=== PATIENT | female | born 1975 | race Caucasian/White ===

== ENCOUNTER 2025-02-21 08:59 | Emergency (ER) | payer OTHER, SELFPAY ==
[2025-02-21 09:01] VITALS: BP 117/82
--- NOTE | 2025-02-21 09:32 | ED.GENMED ---
History of Present Illness
<Vick Camacho PA-C - Last Filed: 02/21/25 15:24>
General
Chief Complaint: Abdominal Pain
Time Seen by Provider: 02/21/25 09:19
History of Present Illness
History of Present Illness:
49-year-old female presents to the emergency department for evaluation of left pelvic pain that has been occurring intermittently for the past 2 to 3 days. Pain began Sunday night, gradual in onset but severe at maximal. Has been waxing and
waning, reports a constant low level pain with episodes of severe pain. Did have some vomiting when pain maximized. Denies any fevers, night sweats, diarrhea, vaginal discharge, vaginal bleeding, or lower urinary tract voiding symptoms. Prior
abdominal surgery includes x 2 and tubal ligation. Last menstrual cycle began 2 weeks ago
Review of Systems
<Vick Camacho PA-C - Last Filed: 02/21/25 15:24>
Review of Systems
Allergies reviewed?: Yes
All Other Systems: ROS reviewed and negative except as documented in HPI and ROS
Phy Exam
<Vick Camacho PA-C - Last Filed: 02/21/25 15:24>
Physical Exam
Physical Exam:
GEN: Well appearing, NAD, WDWN
HEENT: Oral mucosa moist, no scleral icterus
Cardiac: Regular rate
Lung: No respiratory distress, no tachypnea
Abdomen: Soft, no palpable masses, left lower quadrant/pelvic tenderness with no rigidity or peritoneal signs
MSK: No gross deformity or injuries
Skin: Good color, no pallor or jaundice, no rashes
Neuro: AO x3, moves all extremities freely
Psych: Calm, cooperative
Course
<MARLYN Jose Last Filed: 02/21/25 15:24>
Orders/Labs/Results
Orders:
Orders
07/26/25 09:29
Urinalysis Reflex To Culture Urgent
Date Specimen was Collected: 02/21/25
Time Specimen was Collected: 09:28
Test Result ONCE
US Pelvis W Transvag Combined Urgent
Comment: transvag only if transabd view inadequate
Reason For Exam: L pelvic pain
Vital Signs
Initial and Last Documented VS:
Initial Vital Signs
Temp Pulse Resp BP Pulse Ox
98.3 F 78 16 117/82 98
02/21/25 09:01 02/21/25 09:01 02/21/25 09:01 02/21/25 09:01 02/21/25 09:01
Last Documented Vital Signs
Temp Pulse Resp BP Pulse Ox
98.3 F 78 16 117/82 98
02/21/25 09:01 02/21/25 09:01 02/21/25 09:01 02/21/25 09:01 02/21/25 09:33
<Dorie Vincent MD - Last Filed: 02/21/25 10:23>
Orders/Labs/Results
Orders:
Orders
02/21/25 09:29
Urinalysis Reflex To Culture Urgent
Date Specimen was Collected: 02/21/25
Time Specimen was Collected: 09:28
Test Result ONCE
US Pelvis W Transvag Combined Urgent
Comment: transvag only if transabd view inadequate
Reason For Exam: L pelvic pain
Vital Signs
Initial and Last Documented VS:
Initial Vital Signs
Temp Pulse Resp BP Pulse Ox
98.3 F 78 16 117/82 98
02/21/25 09:01 02/21/25 09:01 02/21/25 09:01 02/21/25 09:01 02/21/25 09:01
Last Documented Vital Signs
Temp Pulse Resp BP Pulse Ox
98.3 F 78 16 117/82 98
02/21/25 09:01 02/21/25 09:01 02/21/25 09:01 02/21/25 09:01 02/21/25 09:33
<Vick Camacho PA-C - Last Filed: 02/21/25 15:24>
MDM/Problems Addressed
MDM/Problems Addressed:
Imaging obtained to evaluate for cyst or torsion, this reveals 2 separate cysts, 1 of which is a left ovarian cyst with internal hemorrhage, the likely the source of the patient's pain. She also was noted to have a relatively large left paraovarian
cyst of unclear etiology. 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 Her pain was well-controlled in the ED and she appears clinically stable thus there is no indication for urgent TELEPHONE [employer]ERKS SUPERVISOR intervention
<Vick Camacho PA-C - Last Filed: 02/21/25 15:24>
*Pulse Oximetry
SaO2: 98
Oxygen Mode of Delivery: Room air
Patient hypoxic: no
*Critical Care Note
Total Time (30-74mins, 75-104mins- exclusive of procedures): Not Applicable
ED Attending Note
<Vick Camacho PA-C - Last Filed: 02/21/25 15:24>
-
Portions of this chart may have been created with voice recognition software.� Occasional wrong word or��sound alike� substitutions may have occurred due to the inherent limitations of voice recognition software.
<Dorie Vincent MD - Last Filed: 02/21/25 10:23>
ED Attending Note
Patient seen and examined by attending physician: Yes
I performed the substantive portion of visit, reviewed & personally made and approve the management plan that is documented in note by myself or MINA.: Yes
ED Attending Note:
49-year-old female complains of left lower quadrant pain on and off since Sunday. There are no specific provoking or relieving factors with the exception of a warm shower Motrin can help it. She did have 1 episode of vomiting. She denies
fever, chills, urinary symptoms, vaginal bleeding or discharge. Last menstruation was approximately 2 weeks ago. She denies chest pain, shortness of breath, flank pain, upper abdominal pain, or other complaints. On exam, patient overall nontoxic
and well-appearing. Her bladder is now full in anticipation of an ultrasound. On exam, she has minimal left lower quadrant tenderness without rebound or guarding. Differential diagnosis includes ovarian cyst, ovarian cyst rupture, ovulation,
kidney stone, diverticulitis, etc. Workup in progress.
Discharge Plan
Departure
Patient Disposition: Home (Routine Discharge)
Date of Disposition: 02/21/25
Time of Disposition: 11:47
Patient with high blood pressure during this ER visit?: No
Discharge Problem:
Hemorrhagic cyst of ovary, Para-ovarian cyst
Instructions: Ovarian Cyst (DC)
Prescriptions:
New
diclofenac sodium 75 mg tablet,delayed release (DR/EC)
75 mg PO BID Qty: 20 0RF
oxycodone 5 mg tablet
5 mg PO Q8H PRN (Reason: Pain) Qty: 8 0RF
Referrals:
Virginie Cunningham DO [Family Provider, Family Practice]
Carol Brown DO [Active, Gynecology]
Activity Restrictions/Additional Instructions:
Follow up with your OBGYN for repeat imaging of your cysts
If your pain becomes severe return to the ER
Interventions
Interventions:
*Risk Screen - Suicide Last Done: 02/21/25 09:01
*General Assessment Last Done: 02/21/25 09:47
*Neglect/Abuse Screening Last Done: 02/21/25 09:01
*ED- Fall Risk Assessment Last Done: 02/21/25 09:47
*ED COVID-19 Vaccine History Last Done: 02/21/25 09:47
*Nursing Disposition Last Done: 02/21/25 11:55
GC-Phmuen-Umqtfvzjiq Assessment Last Done: 02/21/25 11:55
Discharge Date and Time
Discharge Date/Time: 02/21/25 11:55
Print Language: INDONESIAN
[2025-02-21 09:47] VITALS: BMI 23.0
[2025-02-21 10:16] LABS: Urine Character Clear (Clear)
== END 2025-02-21 11:55 | disposition home or self-care (01) ==
LOC: EMR 08:59
PROVIDERS: Physician Assistant; EMERGENCY PHYSICIAN Emergency Medicine; FAMILY PHYSICIAN Family Medicine
DX: N83.202 Unspecified ovarian cyst, left side (principal)
CPT/HCPCS: 99284; 76830; 76856; 81003

== ENCOUNTER 2025-04-09 11:33 | Emergency (ER) | payer OTHER, SELFPAY ==
[2025-04-09] VITALS (7 sets, daily range): BP systolic 101–113; BP diastolic 49–70; BMI 23.9
[2025-04-09 12:37] LABS: Hematocrit 39.3 % (37.0-47.0); Hemoglobin 14.1 g/dL (12.0-16.0); Mean Corp Hgb Conc. 35.9 g/dL (33.0-37.0); Mean Corpuscular Volume 87.7 fL (81.0-99.0); Nucleated Red Blood Cells % 0 %; Platelet Count 275 10^3/uL (130-400); Red Cell Dist. Width 12.1 % (11.5-14.5)
[2025-04-09 12:49] LABS: Urine Character Clear (Clear)
[2025-04-09 12:54] LABS: HCG, Urine Qualitative Screen Negative
--- NOTE | 2025-04-09 12:55 | ED.GENMED ---
History of Present Illness
General
Chief Complaint: Abdominal Symptoms
Source: patient
Exam Limitations: none
Time Seen by Provider: 04/09/25 12:20
Nursing documentation reviewed up to this point in time: agreed with
History of Present Illness
History of Present Illness:
Patient is a 49-year-old female who presents to the emergency department for evaluation of left pelvic pain associated with nausea/vomiting. Patient reports left pelvic pain which initially started on Sunday and has been progressively worsening
over the past few days. She numerous episodes of nausea/vomiting however states that she has nothing in her stomach at this point it is just 'foam'. She reports radiation of pain from her left pelvic region into her left lower back/flank region.
She denies any fever or chills. She denies any dysuria, hematuria vaginal bleeding or abnormal discharge. No anorexia.
Patient does have a history of ovarian cyst that she was seen in the ED for similar back in January. She was scheduled for an outpatient pelvic ultrasound tomorrow.
Review of Systems
Review of Systems
Allergies reviewed?: Yes
All Other Systems: ROS reviewed and negative except as documented in HPI and ROS
Phy Exam
Physical Exam
Physical Exam:
Vitals: Patient's vital signs are stable. Afebrile
General: Patient is well appearing, no acute distress. Nontoxic appearing
Skin: Warm and dry, no rashes or lesions
Head: Normocephalic, atraumatic
Eyes: Sclera nonicteric.
Throat: Protecting airway
Neck: Normal ROM, no cervical spine tenderness, no meningismus
Cardiac: Regular rate and rhythm, no murmurs.
Pulm: Normal respiratory effort. Lungs clear
Abdomen: Abdomen soft. Mild tenderness in left pelvic region without rebound tenderness or guarding. No CVA tenderness.
Extremities: No evidence of cyanosis or edema
Neuro: AAOx3. Grossly intact.
Psychiatric: Normal affect.
Course
Orders/Labs/Results
Orders:
Orders
04/09/25 12:24
CBC/With Diff [Complete Blood Count/With Diff] Urgent
Comprehensive Metabolic Panel Urgent
04/09/25 12:35
Test Result ONCE
04/09/25 12:40
HCG, Urine Qualitative Screen Urgent
Date Specimen was Collected: 04/09/25
Time Specimen was Collected: 12:39
Urinalysis Reflex To Culture Urgent
Date Specimen was Collected: 04/09/25
Time Specimen was Collected: 12:39
Urine Microscopic Reflex Cult Urgent
04/09/25 12:52
0.9% Sodium Chloride 1000 ml [Nss] 1,000 ml IV BOLUS
Ketorolac [Toradol] 15 mg IV NOW STA
Ondansetron Injectable [Zofran] 4 mg IV NOW STA
Pelvis & Transvaginal US [US Pelvis W Transvag Combined] Urgent
Comment: hx ovarian cysts
Reason For Exam: Left pelvic pain, +N/V
Renal Only US [US Renal Only W/O Bladder] Urgent
Comment:
Reason For Exam: LLQ/left flank pain
04/09/25 18:44
Ketorolac [Toradol] 15 mg IV NOW STA
04/09/25 18:45
CT Abd/pelvis W Iv Cont Urgent
Comment:
Reason For Exam: Left pelvic pain radiating to flank
Abnormal Lab Results
04/09/25 04/09/25
12:24 12:40
MCH 31.5 H pg
(27.0-31.0)
MPV 11.9 H fL
(7.4-10.4)
Absolute Neuts (auto) 6.6 H 10^3/uL
(1.4-6.5)
Neutrophils % 76.4 H %
(42.2-75.2)
Lymphocytes % 15.5 L %
(20.5-51.1)
Chloride 108 H mmol/L
(98-107)
Carbon Dioxide 20 L mmol/L
(22-30)
Creatinine 0.5 L mg/dL
(0.6-1.0)
Albumin 5.2 H g/dl
(3.5-5.0)
Urine Ketones 3+ A
(Negative)
Ur Occult Blood Reflex 1+ A
(Negative)
Urine RBC 3-6 A /HPF
(0-2)
Urine Bacteria (Reflex) Few A
(Negative)
Urine Albumin (Reflex) 2+ A
(Neg - Trace)
04/09/25 12:24
04/09/25 12:24
Vital Signs
Initial and Last Documented VS:
Initial Vital Signs
Temp Pulse Resp BP Pulse Ox
97.6 F 61 16 107/63 98
04/09/25 11:34 04/09/25 11:34 04/09/25 11:34 04/09/25 11:34 04/09/25 11:34
Last Documented Vital Signs
Temp Pulse Resp BP Pulse Ox
98.9 F 66 18 101/52 100
04/09/25 20:47 04/09/25 20:47 04/09/25 20:47 04/09/25 20:47 04/09/25 20:47
MDM/Problems Addressed
Differential Diagnosis Includes:
Not limited to: Ovarian cyst, ovarian torsion, renal colic, cystitis/pyelonephritis, diverticulitis, muscular strain, etc.
MDM/Problems Addressed:
49-year-old female with history of ovarian cyst presenting with a few days of left pelvic discomfort associated with nausea/vomiting. No associated fever, dysuria/hematuria, diarrhea/constipation. No abnormal vaginal bleeding or discharge.
Patient did have history of left-sided ovarian cyst a few months ago which felt similar. Patient has stable vital signs on arrival and is afebrile. Physical exam as above.
Differential as above. Possible ovarian cyst, feel ovarian torsion less less likely. Other considerations would be possible renal colic or pyelonephritis. Lower suspicion for diverticulitis however would theoretically on differential. Given
history of known ovarian cysts. Will check labs, UA. Will start with ultrasound of pelvis for further evaluation to rule out torsion as well as renal ultrasound. Will give Toradol for pain and reassess after above.
Update: Labs without clinically significant abnormalities. Urine with few RBCs however no evidence of infection. Renal ultrasound without acute findings. Pelvic ultrasound confirms bilateral ovarian blood flow with small cysts of right ovary as
well as left paraovarian cyst. Will symptoms possibly secondary to left paraovarian cyst�given level of discomfort on exam as well as episodes of vomiting�utilize shared decision making patient will proceed with CT scan to rule out any other acute
intra-abdominal/pelvic pathology.
Update: CT scan reviewed with patient which again notes left paraovarian cyst as well as small right cysts in right ovarian area. No evidence of other acute intra-abdominal pathology or obstructive uropathy.
At this point�very low suspicion for acute infectious process. Feel stable for discharge home with [employer] MARKET[employer] SPECIALIST follow-up, supportive care and close return precautions. Patient comfortable with plan.
Chronic conditions affecting care:
History of ovarian cyst
Acute Exacerbation and/or Progression of Chronic Illness:
N/A
*Radiology
Radiology exam reviewed: radiology read reviewed
*Pulse Oximetry
SaO2: 100
Oxygen Mode of Delivery: Room air
Patient hypoxic: no
*EKG
Interpreted by ED Provider?: NA
*Podiatrist Orthopedic Interpretation
Rate: Podiatrist Orthopedic- N/A
*Critical Care Note
Total Time (30-74mins, 75-104mins- exclusive of procedures): Not Applicable
ED Attending Note
-
Portions of this chart may have been created with voice recognition software.� Occasional wrong word or��sound alike� substitutions may have occurred due to the inherent limitations of voice recognition software.
Discharge Plan
Departure
Patient Disposition: Home (Routine Discharge)
Date of Disposition: 04/09/25
Time of Disposition: 20:34
Patient with high blood pressure during this ER visit?: No
Condition: Good
Discharge Problem:
Left ovarian cyst, Pelvic pain
Instructions: Ovarian cyst - ED (DC), Pelvic pain - ED (DC)
Prescriptions:
New
diclofenac sodium 75 mg tablet,delayed release (DR/EC)
75 mg PO BID PRN (Reason: Pain) Qty: 14 0RF
ondansetron 4 mg tablet,disintegrating
4 mg PO Q8H PRN (Reason: nausea and vomiting) Qty: 7 0RF
No Action
diclofenac sodium 75 mg tablet,delayed release (DR/EC)
75 mg PO BID Qty: 20 0RF
oxycodone 5 mg tablet
5 mg PO Q8H PRN (Reason: Pain) Qty: 8 0RF
Referrals:
Virginie Cunningham DO [Family Provider, Family Practice]
Activity Restrictions/Additional Instructions:
RETURN TO THE EMERGENCY DEPARTMENT WITH ANY FEVERS, CHILLS, INTRACTABLE NAUSEA/VOMITING, PERSISTENT OR WORSENING ABDOMINAL PAIN, WORSENING IN CURRENT SYMPTOMS, OR ANY OTHER CONCERNS
- As discussed�your imaging did show a cyst near your left ovary. This may be contributing to your symptoms today.
- Prescription for diclofenac has been sent to your pharmacy. Take this as directed. You should not take diclofenac in addition to Advil/Motrin.
- Stay well-hydrated.
- Follow-up with your CONTENT SPECIALIST for further evaluation/management.
Monitor your symptoms closely and return to the emergency department with any acute worsening/new symptoms or any other concerns
Interventions
Interventions:
*Risk Screen - Suicide Last Done: 04/09/25 11:34
*General Assessment Last Done: 04/09/25 12:10
*Neglect/Abuse Screening Last Done: 04/09/25 11:34
*ED- Fall Risk Assessment Last Done: 04/09/25 12:10
*ED COVID-19 Vaccine History Last Done: 04/09/25 12:10
*Nursing Disposition Last Done: 04/09/25 20:48
MZ-Fsonsw-Fulrqrianw Assessment Last Done: 04/09/25 12:10
Discharge Date and Time
Discharge Date/Time: 04/09/25 20:50
Print Language: DIVEHI
[2025-04-09] MEDS: NSS 1000 IV (12:57)
[2025-04-09] MEDS: TORADOL 15 MG IV ×2 (12:58→18:55)
[2025-04-09] MEDS: ZOFRAN 4 MG IV (12:58)
[2025-04-09 13:01] LABS: ALT (SGPT) 23 U/L (0-35); AST (SGOT) 22 U/L (14-36); Albumin 5.2 g/dl (3.5-5.0); Alkaline Phosphatase 47 U/L (38-126); Blood Urea Nitrogen 10 mg/dl (7-17); Calcium 9.9 mg/dl (8.4-10.2); Carbon Dioxide 20 mmol/L (22-30); Chloride 108 mmol/L (98-107); Estimated Creatinine Clearance 95 ml/min; Glucose 86 mg/dl (70-99); Potassium 4.3 mmol/L (3.5-5.1); Sodium 139 mmol/L (135-145); Total Protein 7.5 g/dl (6.3-8.2); eGFR > 60.00
[2025-04-09 14:13] LABS: Urine White Cell 0-2 /HPF (0-5)
== END 2025-04-09 20:50 | disposition home or self-care (01) ==
LOC: EMR 11:33
PROVIDERS: Physician Assistant; EMERGENCY PHYSICIAN Emergency Medicine; FAMILY PHYSICIAN Family Medicine
DX: N83.291 Other ovarian cyst, right side (principal); N83.292 Other ovarian cyst, left side; R10.2 Pelvic and perineal pain; R11.2 Nausea with vomiting, unspecified
CPT/HCPCS: 96374; 96375; 96361; 99284; 74177; 76775; 76830; 76856; 80053; 81003; 81015; 81025; 85025; Q9967